=== PATIENT | female | born 1980 | race African-American/Black ===

== ENCOUNTER → 2020-03-25 15:07 | Outpatient (CLI) | payer OTHER, SELFPAY ==
[2020-03-26 00:35] LABS: COVID19 Sendout Not Detected (Not Detect)
== END ==
PROVIDERS: PCP Family Medicine; Visit Provider Nurse Practitioner
DX: Z11.59 Encounter for screening for other viral diseases (principal)
CPT/HCPCS: 87635

== ENCOUNTER 2020-03-28 08:01 | Day surgery (SDC) | payer OTHER, SELFPAY ==
[2020-03-23 15:08] VITALS: BMI 29.5
[2020-03-28] VITALS (9 sets, daily range): BP systolic 107–131; BP diastolic 72–91; PULSE 60–95; RESP 12–17; TEMP 36.2–36.6; O2SAT 98–100; BMI 31.1
[2020-03-28] MEDS: LACTATED RINGERS 1,000 ML 42 ML IV (08:40)
[2020-03-28] MEDS: CEFAZOLIN 2 GM/100 ML FROZ.PIGGY IV (08:50)
--- NOTE | 2020-03-28 09:07 | SUR.OPER ---
Supine on padded OR bed, head on pillow, arms secured on padded arm boards at <90 degrees abduction, legs uncrossed, safety belt at thigh, tape over blanket over lower legs.
[2020-03-28] MEDS: BUPIVACAINE 0.5% (PF) VIAL 30 ML INJ (09:13)
--- NOTE | 2020-03-28 10:10 | PM.PREOP ---
Pre-operative Note COVID-19 COVID-19 status: Negative Result date/Date tested (Pos, Neg/Pending): 03/25/20 Interval Note History & Physical reviewed/Exam performed by Physician: Yes Changes to H&P: No
--- NOTE | 2020-03-28 10:16 | PM.OP.1 ---
Operative Date/Time/Diagnoses Date of procedure: 03/28/20 Time of procedure: 10:16 Pre-op diagnosis: Recurrent ventral hernia Post-op diagnosis: same Procedure & Clinicians Procedure: Repair of hernia with underlay of mesh Same procedure as scheduled: Yes Indications: Symptomatic hernia at the site of a prior repair Click Yes if Unassisted: Yes Anesthesia Type: General Operative Notes Findings: Two Small defects at the upper edge of mesh from a prior repair. Mesh is placed under the defects. Closure Type: primary Specimen(s): none sent Prosthetic devices, grafts, tissues, transplants, or devices: 1.7 in Ventralex mesh in the preperitoneal space Estimated Blood Loss (mL): 5 Blood products transfused: none Procedure in detail: Patient was placed supine on the operating room table underwent general LMA anesthesia. She was prepped and draped in usual fashion. A curvilinear incision was made through a scar in the infraumbilical fold. It was carried down to the level of mesh and fascia. Dissection was carried superiorly and the umbilicus was lifted off the underlying tissue. I encountered a hernia sac that was actually to the right slightly of midline. I dissected that sac from surrounding structures opened it and reduced the contents. The fascial edge was cleared. I identified a small 2nd sac edge adjacent to the 1st. This contained fat. I cauterized and removed the contents and the sac. The fascial edge was identified. Working under the edge of the fascial defect the peritoneum was dissected off of it including the small adjacent 2nd defect. A 1.7 in diameter Ventralex mesh was placed under the fascia. Both defects were closed with [id number] 0 Ethibond incorporating the tails of the patch into the closure of the larger of the 2 defects. The repair appeared to be adequate. The umbilicus was tacked down to the fascia. The subcu was closed with interrupted 3 0 Vicryl. The skin was closed with interrupted 4 0 Vicryl subcuticular stitches and Steri-Strips. Local anesthetic was infiltrated at the beginning of the operation and prior to closure. There were no apparent complications. The patient was awakened extubated taken recovery area in good condition Post-operative Condition: stable Disposition: PACU Plan for aftercare: Follow-up in the office
[2020-03-28] MEDS: fentaNYL 100 MCG/2 ML INJ IV ×2 (10:19→10:39)
[2020-03-28] MEDS: OXYCODONE/ACETAMINOPHEN 5/325 TABLET 1 TAB PO (10:43)
== END 2020-03-28 11:45 | disposition home or self-care (01) ==
PROVIDERS: PCP Family Medicine; Referring Provider Specialist; Visit Provider Specialist
PROC: (CPT 49565; principal; 2020-03-28 09:15)
DX: K43.2 Incisional hernia without obstruction or gangrene (principal)
CPT/HCPCS: 49565; 49568; C1781; J0690; J1100; J1885; J2250; J2405; J2704; J3010

== ENCOUNTER → 2025-04-29 15:06 | Outpatient (CLI) | payer BC, SELFPAY ==
--- NOTE | 2025-04-29 15:09 | DI.US.S_ITS ---
PROCEDURE: US PELVIC COMPLETE INDICATIONS: ABD UTERINE BLEEDING TECHNIQUE: Real-time scanning was performed of the pelvic organs, with image documentation. Additional endovaginal scanning was necessary due to incomplete visualization of the adnexal and endometrial structures by transabdominal scanning. COMPARISON: None. FINDINGS: Uterus: Uterus is anteverted and normal in size at 9.7 x 5.9 x 6.0 cm. The myometrium is homogeneous. The endometrium measures 5 mm combined thickness. There is a 3.2 x 2.8 x 3.0 cm subserosal uterine fibroid noted in the midline, posterior uterus. Ovaries: The right ovary measures 5.9 x 4.5 x 6.1 cm, with a calculated ovarian volume of 84 cc. There is a 5.9 x 4.2 x 5.5 cm cyst in the right ovary. The left ovary is not visualized on this exam. Less than 12 follicles can be seen in each ovary. No adnexal masses are seen. Other: No pathologic free abdominal or pelvic fluid. IMPRESSION: Pelvic ultrasound without acute sonographic abnormalities. Note of a 3.2 cm subserosal uterine fibroid. There is a 5.9 cm right ovarian cyst. Follow-up pelvic ultrasound in 6-12 weeks is recommended to document stability versus resolution. Left ovary not visualized on this exam. We strive to produce accurate, complete, and clear reports of imaging services. To assist us in improving patient care, this report was composed using standard report templates and voice recognition software. Therefore, it may contain abnormal punctuation, insertions and/or omissions. Occasional wrong-word or sound-alike substitutions may occur. Though we review the report and make efforts to correct it, we do recommend that the report be read carefully in proper context to recognize any text inaccuracies. Dictated by: Jonathan Hartley M.D. on 04/30/2025 at 11:04 Approved by: Jonathan Hartley M.D. on 04/30/2025 at 11:08
== END ==
LOC: US 15:09
PROVIDERS: PCP Family Medicine; Referring Provider Family Medicine; Visit Provider Registered Nurse
DX: N93.9 Abnormal uterine and vaginal bleeding, unspecified (principal); D25.2 Subserosal leiomyoma of uterus; N83.201 Unspecified ovarian cyst, right side
CPT/HCPCS: 76830; 76856